=== PATIENT | male | born 1955 | race Caucasian/White ===

== ENCOUNTER 2019-01-27 14:13 | Outpatient (CLI) | payer MEDICARE, OTHER | END 2019-01-27 14:14 | disposition home or self-care (01) | LOC: DTY/OP 14:13 | PROVIDERS: ATTEND Surgery | DX: E66.01 Morbid (severe) obesity due to excess calories (principal) | CPT/HCPCS: 97802 ==

== ENCOUNTER 2019-03-09 00:12 | Outpatient (CLI) | payer MEDICARE ==
--- NOTE | 2019-03-09 16:25 | RAD ---
TWO VIEW CHEST: 03/09/19 HISTORY: Preoperative evaluation. Lungs are clear. Heart and mediastinum unremarkable. Vasculature normal. IMPRESSION: No acute findings. POS: [facility]
[2019-03-09 16:36] LABS: #Eosinphils 0.2 thou/uL (0.0-0.7); #Lymphocytes 1.8 thou/uL (1.20-3.40); #Monocytes 0.6 thou/uL (0.11-0.59); #Neutrophils 3.6 thou/uL (1.40-6.50); %Basophils 0.7 % (0.0-1.0); %Eosinophils 3.8 % (0.0-10.0); %Lymphocytes 28.5 % (21.0-51.0); %Monocytes 8.8 % (0.0-10.0); %Neutrophils 58.2 % (42.0-75.0); Hemoglobin 16.3 g/dL (14.0-18.0); Mean Corpuscular HGB CONC 33.2 g/dL (32.0-36.0); Mean Corpuscular Hemoglobin 30.2 pg (27.0-31.0); Mean Platelet Volume 8.4 fL (7.4-10.4); Platelet Count 221 thou/uL (130-400); RBC Distribution Width 13.4 % (11.5-14.5); Red Blood Cell (RBC) Count 5.38 mill/uL (4.70-6.10); White Blood Cell (WBC) Count 6.2 thou/uL (4.8-10.8)
[2019-03-09 16:42] LABS: Hemoglobin A1c 5.9 % (4.0-6.0)
[2019-03-09 17:03] LABS: ALT (SGPT) 15 U/L (8-55); AST (SGOT) 30 U/L (5-34); Albumin 4.1 g/dL (3.4-4.8); Alkaline Phosphatase 48 U/L (40-150); Anion Gap 12 mmol/L (10-20); BUN (Urea Nitrogen) 19 mg/dL (8.4-25.7); Bilirubin, Direct 0.2 mg/dL (0.1-0.3); Bilirubin, Total 0.6 mg/dL (0.2-1.2); Calc. Creatinine Clearance 0 mL/min (70-130); Calcium 9.2 mg/dL (7.8-10.44); Carbon Dioxide 25 mmol/L (23-31); Chloride 105 mmol/L (98-107); Estimated GFR-MDRD 77; Glucose 90 mg/dL (80-115); Potassium 4.1 mmol/L (3.5-5.1); Protein, Total 7.1 g/dL (5.8-8.1); Sodium 138 mmol/L (136-145)
== END 2019-03-09 00:13 | disposition home or self-care (01) ==
LOC: LABBT 00:12
PROVIDERS: ATTEND Surgery
DX: Z01.818 Encounter for other preprocedural examination (principal); E66.01 Morbid (severe) obesity due to excess calories
CPT/HCPCS: 71046; 80053; 80076; 83036; 85025

== ENCOUNTER 2019-03-09 10:30 | Inpatient (IN) | payer MEDICARE ==
[2019-03-09 15:21] VITALS: BMI 41.0
[2019-03-13] MEDS ORDERED: Heparin 5,000 UNITS/ML VIAL ONE (07:53)
[2019-03-13] MEDS ORDERED: Bupivacaine/Epinephrine 0.25% 30 ML VIAL ONE (07:55)
[2019-03-13] MEDS ORDERED: Lidocaine 2% Jelly 5 ML TUBE ONE (08:57)
[2019-03-13] MEDS ORDERED: Fentanyl 100 MCG/2 ML VIAL ONE ×2 (08:57→11:51)
[2019-03-13] MEDS ORDERED: Ketorolac Tromethamine 30 MG/ML VIAL ONE (09:17)
[2019-03-13] MEDS ORDERED: Rocuronium Bromide 10 MG/ML (10ML VIAL) ONE (09:17)
[2019-03-13] MEDS ORDERED: Dexamethasone 20 MG/5 ML VIAL ONE (09:17)
[2019-03-13] MEDS ORDERED: ePHEDrine 50 MG/ML VIAL ONE (09:17)
[2019-03-13] MEDS ORDERED: Glycopyrrolate 0.2 MG/ML 5 ML SYRINGE ONE (09:17)
[2019-03-13] MEDS ORDERED: PROPOFOL 200 MG/20 ML VIAL ONE (09:17)
[2019-03-13] MEDS ORDERED: Lidocaine 1% PF 5 ML VIAL ONE (09:17)
[2019-03-13] MEDS ORDERED: Ondansetron PF 4 MG/2 ML Vial ONE (09:17)
[2019-03-13] MEDS ORDERED: Promethazine HCl 25 MG/ML VIAL IM PRN ×3 (11:02→11:37)
[2019-03-13] MEDS ORDERED: Dextrose 5% in Water 1,000 ML IV PRN (11:02)
[2019-03-13] MEDS ORDERED: Hydrocodone-Acetamin 15 ML UDCUP PO PRN (11:02)
[2019-03-13] MEDS ORDERED: diphenhydrAMINE 50 MG/ML VIAL IVP PRN ×2 (11:02→11:37)
[2019-03-13] MEDS ORDERED: hydrALAZINE 20 MG/ML VIAL SLOW IVP PRN (11:02)
[2019-03-13] MEDS ORDERED: Dextrose 50% Abboject 50 ML SYRINGE SLOW IVP PRN (11:02)
[2019-03-13] MEDS ORDERED: Ondansetron PF 4 MG/2 ML Vial IVP PRN ×2 (11:02→11:37)
--- NOTE | 2019-03-13 11:11 | HP ---
CHIEF COMPLAINT: Recurrent morbid obesity. HISTORY OF PRESENT ILLNESS: The patient is a 63-year-old male. He had a lap band placed in 2004, weight from 320 to 225; however, he developed severe reflux and chest pain requiring removal of the fluid. He had a negative cardiac evaluation. He continues to have reflux and nocturnal cough despite an empty band. PAST MEDICAL HISTORY: Hypertension. PAST SURGICAL HISTORY: He had a lap patricio in 2006, lap band in 2004, ingrown toenail in 2011. MEDICATIONS: Multivitamins, losartan, hydrochlorothiazide. FAMILY HISTORY: Lymphoma. ALLERGIES: HE HAS AN ALLERGY TO SULFA. SOCIAL HISTORY: He is . He is a senior sharepoint developer. No tobacco. No alcohol. PHYSICAL EXAMINATION: VITAL SIGNS: Height 70, weight 283, body mass index 40.6. GENERAL: Well-developed, well-nourished male in no apparent distress. HEENT: Unremarkable. Pupils are equal, round, and reactive. Extraocular motor intact. Pharynx clear. Good dentition. NECK: Supple. No thyroid masses. No carotid bruits. NEURO: No focal defects. LUNGS: Clear. HEART: Regular rate and rhythm. ABDOMEN: Soft, nondistended, nontender. Normal bowel sounds. No palpable masses or hernias, but there is a palpable port in the left upper quadrant. Well-healed surgical scars. EXTREMITIES: He had some mild cellulitis that has resolved. He has good pulses. Mild edema. BACK: Nontender. ASSESSMENT: Morbid obesity with comorbidities. PLAN: Laparoscopic removal of band and port conversion to sleeve gastrectomy. CONSENT: I have discussed planned procedure as well as risk of bleeding, infection, injury to esophagus, spleen, loops of bowel, need to open leakage from staple line. He understands and gives informed consent. Job ID: [id number]
[2019-03-13] MEDS ORDERED: Sodium Chloride 0.9% (PF) 10 ML VIAL FS PRN (11:13)
[2019-03-13] MEDS ORDERED: Promethazine HCl 25 MG/ML VIAL SLOW IVP PRN (11:18)
[2019-03-13] MEDS ORDERED: Ondansetron HCl/PF 4 MG/2 ML Vial IVP PRN (11:18)
--- NOTE | 2019-03-13 11:27 | OP ---
DATE OF PROCEDURE: 03/13/2019 PREOPERATIVE DIAGNOSIS: Recurrent morbid obesity, lap-band intolerance. PROCEDURE PERFORMED: Laparoscopic removal of lap-band and port with sleeve gastrectomy, esophagogastroscopy. INDICATIONS: A 63-year-old male, who had a lap band many years ago. Initially, it was successful, but over the last few years, he was unable to tolerate any restriction. He was having quite a bit of discomfort and reflux. FINDINGS: Dense scar tissue at the EG junction, very thick stomach. A 38-Australian bougie used. DESCRIPTION OF PROCEDURE: After informed consent was obtained, the patient was taken to the operating room and given general endotracheal anesthesia, placed in supine position. Abdomen was prepped and draped in usual fashion. Local anesthesia infiltrated subcutaneously and deep, and a 12 mm incision was performed approximately 8 inches above the xiphoid slightly to left. Veress needle inserted, drop test performed. Pneumoperitoneum was created to a volume of 2 L of carbon dioxide. Utilizing a bladeless 12 mm trocar and 0-degree laparoscope, direct visual entry into the abdominal cavity was performed. Pneumoperitoneum was created to a pressure of 15 mmHg. The patient placed in steep reverse Trendelenburg position. Ashley liver retractor inserted. Left lobe of the liver retracted superiorly. Pylorus identified, a 12 mm port placed on the right beneath it and two 12s placed left subcostal, one of which was where the old port was. The lap-band tubing was found, it was divided just distal to the pin, and then, this was traced down to the buckle. The buckle was dissected out. The capsule was opened on both sides. Then, the lap-band was opened and removed from around the stomach. It was then removed from the abdomen. There was quite a bit of dense scar tissue at the EG junction, it was opened. The gastrophrenic ligament went anterior to free it up. This allowed better positioning of the liver retractor. Then, the omentum was taken off the greater curvature 5 cm from the pylorus utilizing the LigaSure. Short gastrics divided with LigaSure and left crura defined with the LigaSure. The 38-Australian bougie was inserted and directed into the antrum. The linear 60 mm black load stapler was used because the stomach was very thick to divide the antrum to the bougie. Then, a green load was used, and a series of gold's finally at the end of blue was used at the angle of His. The bougie removed. Intraoperative endoscopy was performed, the video endoscope inserted under direct vision and advanced into the sleeve. The staple line inspected. There was no bleeding. Staple line then tested by inflating the new stomach with pressurized air under water, there was no air leak. Stomach decompressed. Scope removed. The lap-band port was then dissected out and removed. Then, the abdominal wall opening there was dilated and the remnant of the stomach was removed from the abdomen through that port site. This fascia was closed with 0 Vicryl suture and the GraNee needle. Trocars and retractors removed on the right that there was some bleeding from that right lateral incision, so again 0 Vicryl with GraNee needle was used to close the fascia. The skin closed with interrupted 4-0 Rapide. Dermabond applied. The patient tolerated the procedure well, transferred to Recovery in good condition. Sponge and needle count verified correct x2. Job ID: [id number]
[2019-03-13] MEDS ORDERED: Zolpidem Tartrate 5 MG TAB PO PRN (11:37)
[2019-03-13] MEDS ORDERED: diphenhydrAMINE 25 MG CAP PO PRN (11:37)
[2019-03-13] MEDS ORDERED: Naloxone HCl 0.4 mg/ml Vial IV PRN (11:37)
[2019-03-13] MEDS ORDERED: fentaNYL Citrate/PF 2,000 MCG in Sodium Chloride 0.9% 60 ML IV PRN (11:37)
[2019-03-13] MEDS ORDERED: diphenhydrAMINE 50 MG/ML VIAL IM PRN (11:37)
[2019-03-13] MEDS ORDERED: Communication Order-Pharmacy FS SCH (11:45)
[2019-03-13] MEDS ORDERED: Promethazine HCl 25 MG/ML VIAL ONE (11:51)
[2019-03-13] MEDS ORDERED: Ketorolac Tromethamine 30 MG/ML VIAL IVP SCH (12:00)
[2019-03-13] MEDS: Ketorolac Tromethamine 30 MG/ML VIAL IVP SCH ×2 (12:45→17:41)
[2019-03-13] MEDS: CEFAZOLIN 2 GM in Premix Bag 1 BAG IVPB SCH (16:26)
[2019-03-13] MEDS: D5 1/2 NS w/20 mEq KCL 1,000 ML IV SCH (16:26)
--- NOTE | 2019-03-13 17:20 | EKG ---
Test Reason : PREOP Blood Pressure : / mmHG Vent. Rate : 055 BPM Atrial Rate : 055 BPM P-R Int : 176 ms QRS Dur : 102 ms QT Int : 450 ms P-R-T Axes : 054 -14 002 degrees QTc Int : 430 ms Sinus bradycardia NST wave change When compared with ECG of 14-AUG-2007 18:10, Criteria for Septal infarct are no longer Present Confirmed by DR. Cindy TROTTER ([id number]) on 03/13/2019 5:20:50 PM Referred By: ROCÍO Confirmed By:DR. Cindy TROTTER
[2019-03-14] MEDS: D5 1/2 NS w/20 mEq KCL 1,000 ML IV SCH ×3 (00:09→08:43)
[2019-03-14] MEDS: CEFAZOLIN 2 GM in Premix Bag 1 BAG IVPB SCH (00:09)
[2019-03-14] MEDS: Ketorolac Tromethamine 30 MG/ML VIAL IVP SCH ×3 (00:09→11:09)
[2019-03-14 06:41] LABS: #Basophils 0.1 thou/uL (0.0-0.2); #Lymphocytes 0.9 thou/uL (1.20-3.40); #Monocytes 0.6 thou/uL (0.11-0.59); %Basophils 0.9 % (0.0-1.0); %Eosinophils 0.1 % (0.0-10.0); %Lymphocytes 6.3 % (21.0-51.0); %Monocytes 4.4 % (0.0-10.0); %Neutrophils 88.3 % (42.0-75.0); Hemoglobin 14.8 g/dL (14.0-18.0); Mean Corpuscular HGB CONC 33.2 g/dL (32.0-36.0); Mean Corpuscular Hemoglobin 30.8 pg (27.0-31.0); Mean Corpuscular Volume 92.5 fL (78.0-98.0); Mean Platelet Volume 8.4 fL (7.4-10.4); Platelet Count 186 thou/uL (130-400); RBC Distribution Width 13.3 % (11.5-14.5); White Blood Cell (WBC) Count 13.6 thou/uL (4.8-10.8)
[2019-03-14 06:59] LABS: Anion Gap 10 mmol/L (10-20); BUN (Urea Nitrogen) 13 mg/dL (8.4-25.7); Calc. Creatinine Clearance 143 mL/min (70-130); Calcium 8.1 mg/dL (7.8-10.44); Carbon Dioxide 23 mmol/L (23-31); Chloride 105 mmol/L (98-107); Estimated GFR-MDRD 83; Glucose 170 mg/dL (80-115); Potassium 4.9 mmol/L (3.5-5.1); Sodium 133 mmol/L (136-145)
--- NOTE | 2019-03-14 08:22 | RAD ---
EXAM: XR UGI Single Contrast No Air PROVIDED CLINICAL HISTORY: Post gastric sleeve procedure. COMPARISON: None Fluoroscopy: Total time is 0.8 minutes with total dose of 41.635 srinivasan square centimeter FINDINGS: There is transient holdup of contrast at the level of the GE junction with to and fro motion of contr a within the esophagus. However, contrast eventually passes into the stomach. There are postsurgical changes related to gastric sleeve procedure. There is no extravasation contrast seen to suggest a leak. Contrast extends into the duodenum. Surgical clips overlie the right upper quadrant. IMPRESSION: Postsurgical changes related to gastric sleeve procedure. There is no extravasation of contrast seen to suggest a leak.
[2019-03-14] MEDS ORDERED: GASTROGRAFIN 30 ML BOT ONE (08:48)
[2019-03-14] MEDS ORDERED: Pantoprazole 40 MG VIAL IVP SCH (09:00)
[2019-03-14] MEDS ORDERED: Enoxaparin Sodium 40 MG/0.4 ML SYRINGE SC SCH (09:00)
[2019-03-14] MEDS ORDERED: Hydrocodone-Acetamin 15 ML UDCUP PO PRN (10:28)
--- NOTE | 2019-03-14 11:24 | DIS ---
DATE OF ADMISSION: 03/13/2019 DATE OF DISCHARGE: 03/14/2019 DISCHARGE DIAGNOSES: Recurrent morbid obesity, lap band intolerance. PROCEDURES DURING ADMISSION: Laparoscopic removal of band and port, sleeve gastrectomy. HOSPITAL COURSE: The patient was admitted, taken to the operating room, underwent removal of his band, port, and sleeve. Intraoperative esophagogastroscopy was also performed. The patient did well. He is tolerating liquids. His pain is controlled on p.o. medications, discharged home on hydrocodone and Zofran. Follow up with me in 2 weeks. Job ID: [id number]
[2019-03-14 11:31] VITALS: BP 100/63; TEMP 98.8
== END 2019-03-14 13:52 | disposition home or self-care (01) | DRG 327 ==
LOC: SURG A 03-13 07:07
PROVIDERS: ADMIT Surgery; ATTEND Surgery
PROC: 0DP64CZ Removal of Extraluminal Device from Stomach, Percutaneous Endoscopic Approach (ICD-10-PCS; principal; 2019-03-13)
PROC: 0DB64Z3 Excision of Stomach, Percutaneous Endoscopic Approach, Vertical (ICD-10-PCS; 2019-03-13)
PROC: 0DJ08ZZ Inspection of Upper Intestinal Tract, Via Natural or Artificial Opening Endoscopic (ICD-10-PCS; 2019-03-13)
DX: K95.09 Other complications of gastric band procedure (principal); Z68.41 Body mass index [BMI] 40.0-44.9, adult; E66.01 Morbid (severe) obesity due to excess calories; K21.9 Gastro-esophageal reflux disease without esophagitis; I10 Essential (primary) hypertension; Z79.899 Other long term (current) drug therapy; Z88.2 Allergy status to sulfonamides; Y83.8 Other surgical procedures as the cause of abnormal reaction of the patient, or of later complication, without mention of misadventure at the time of the procedure
CPT/HCPCS: 36415; 74241; 80048; 85025; 88307; 88312; 93005; 93010; C9113; J0131; J0690; J1100; J1644; J1650; J1885; J2001; J2405; J2550; J2704; J3010; J3490; Q9963